=== PATIENT | female | born 1945 | race Caucasian/White ===

== ENCOUNTER 2016-07-06 10:42 | Emergency (ER) | payer MEDICARE ==
[~2016-07-06] VITALS: Ht 167.6 cm; Wt 61.2 kg
[~2016-07-06 10:42] MED LIST: BONI150T PO; ESTR0.5T9 PO; HYDR-3133 PO; MONT10TA2 PO; PRIL40CA PO; SIMV20 PO; [UNRECOGNIZED DRUG - CODE] PO
[2016-07-06 10:46] VITALS: BP 143/102; PULSE 121; RESP 22; TEMP 98.5; O2SAT 97
[2016-07-06] MEDS ORDERED: methylPREDNISolone SOD SUCC 125 MG/2 ML VIAL IVP ONE (11:00)
[2016-07-06] MEDS ORDERED: SODIUM CHLORIDE 0.9% FLUSH 5 ML FLUSH IVF PRN (11:00)
[2016-07-06] MEDS: RESP: ALBUTEROL 2.5 MG/IPRATROPIUM 0.5 MG NEB (SCH) INH (11:09)
--- NOTE | 2016-07-06 11:14 | RADHPO ---
EXAM DATE/TIME: 07/06/2016 11:08 [facility] COMPARISON: No previous studies available for comparison. INDICATIONS : Shortness of breath and coughing for 3 days. MEDICAL HISTORY : None. SURGICAL HISTORY : None. ENCOUNTER: Initial ACUITY: 3 days PAIN SCORE: 0/10 LOCATION: Bilateral chest FINDINGS: A single view of the chest demonstrates the lungs to be symmetrically aerated without evidence of mas s, infiltrate or effusion. The cardiomediastinal contours are unremarkable. Osseous structures are intact. CONCLUSION: No acute disease. Gabriel Aldana MD on July 06, 2016 at 11:12 Board Certified Radiologist. This report was verified electronically.
[2016-07-06] MEDS ORDERED: SODIUM CHLOR 0.9% 1000 ML INJ 1,000 ML IV ONE (11:15)
--- NOTE | 2016-07-06 11:19 | PD ---
HPI . Cough and shortness of breath Chief Complaint: Respiratory Symptoms Time Seen by Provider: 10:55 Travel History International Travel<30 days: Yes Contact w/Intl Traveler<30days: Yes Name of Country Traveled to: [employer] [place] Traveled to known affect area: Yes History of Present Illness HPI Patient presents with a cough and shortness of breath 6 days. She has subjective fevers and chills at the onset of the illness but those have abated. However, the cough and shortness of breath is worsening. She has been seen for this illness and was prescribed a Z-Dillon. She has had day 4 Z-Dillon. Despite this, her symptoms are worsening rather than improving. She now has purulent sputum. PFSH Past Medical History Arthritis: Yes (OSTEOPOROSIS) High Cholesterol: Yes Coronary Artery Disease: Yes (STRESS TEST IN 2008 AND 2009) GERD: Yes ?: Not Menopausal: Yes Past Surgical History Other Surgery: Yes (BREAST BIOPSY) Social History Alcohol Use: Yes (patient) Tobacco Use: No Substance Use: No Allergies-Medications (Allergen,Severity, Reaction): Coded Allergies: Dilaudid (Verified Allergy, Severe, ITCHING, 07/06/16) Iodinated Contrast Media (Verified Allergy, Severe, HIVES, 07/06/16) Keflex (Verified Allergy, Severe, HIVES, 07/06/16) Levaquin (Verified Allergy, Severe, HIVES, 07/06/16) Morphine (Verified Allergy, Severe, HIVES, 07/06/16) Penicillin (Verified Allergy, Severe, HIVES, 07/06/16) Percocet (Verified Allergy, Severe, HIVES, 07/06/16) Uncoded Allergies: XODOL (Allergy, Severe, HIVES, 07/23/11) Reported Meds & Prescriptions Reported Meds & Active Scripts Active Reported Prilosec (Omeprazole) 40 Mg Cap 40 Mg PO DAILY Naprelan (Naproxen Sodium) 750 Mg Tab 750 Mg PO DAILY Hydroxyzine Hcl (Hydroxyzine HCl) 25 Mg Tab 25 Mg PO TIDPRN Singulair (Montelukast Sodium) 10 Mg Tab 10 Mg PO DAILYPRN Estrace (Estradiol) 0.5 Mg Tab 0 PO BID UNKNOWN DOSE Zocor (Simvastatin) 20 Mg Tab 20 Mg PO DAILY Boniva (Ibandronate Sodium) 150 Mg Tab 150 Mg PO MONTHLY Review of Systems Except as stated in HPI: all other systems reviewed are Neg General / Constitutional: Positive: Fever, Chills Cardiovascular: Positive: Chest Pain or Discomfort (she states that her chest is now sore from coughing.) Respiratory: Positive: Cough, Shortness of Breath Physical Exam Narrative GENERAL: The patient appears short of breath. SKIN: Warm and dry. HEAD: Atraumatic. Normocephalic. EYES: Pupils equal and round. ENT: No nasal bleeding or discharge. Mucous membranes pink and moist. NECK: Trachea midline. Neck is supple. CARDIOVASCULAR: Sinus tachycardia. Heart sounds normal. RESPIRATORY: No accessory muscle use. Lungs sound clear. However, the patient is tachypneic at 22. Saturations on room air are 97%. GASTROINTESTINAL: Abdomen soft, non-tender, nondistended. MUSCULOSKELETAL: No obvious deformities. No edema. NEUROLOGICAL: Awake and alert. No obvious cranial nerve deficits. Motor grossly within normal limits. Normal speech. PSYCHIATRIC: Appropriate mood and affect; insight and judgment normal. Data Data Last Documented VS Vital Signs Date Time Temp Pulse Resp B/P Pulse Ox O2 Delivery O2 Flow Rate FiO2 07/06/16 12:17 98.4 123 20 120/63 97 Orders Complete Blood Count With Diff (07/06/16 11:00) Basic Metabolic Panel (Bmp) (07/06/16 11:00) B-Type Natriuretic Peptide (07/06/16 11:00) D-Dimer (07/06/16 11:00) Ckmb (Isoenzyme) Profile (07/06/16 11:00) Troponin I (07/06/16 11:00) Iv Access Insert/Monitor (07/06/16 11:00) Electrocardiogram (07/06/16 11:00) Ecg Monitoring (07/06/16 11:00) Oximetry (07/06/16 11:00) Oxygen Administration (07/06/16 11:00) Chest, Single Ap (07/06/16 11:00) Sodium Chloride 0.9% Flush (Ns Flush) (07/06/16 11:00) Methylprednisolone So Succ Inj (Solumedr (07/06/16 11:00) Albuterol-Ipratropium Neb (Duoneb Neb) (07/06/16 11:00) Sodium Chlor 0.9% 1000 Ml Inj (Ns 1000 M (07/06/16 11:15) Ct Pulmonary Angiogram (07/06/16 12:22) Methylprednisolone So Succ Inj (Solumedr (07/06/16 13:30) Diphenhydramine Inj (Benadryl Inj) (07/06/16 13:30) Iohexol 350 Inj (Omnipaque 350 Inj) (07/06/16 14:05) Labs Laboratory Tests Test 07/06/16 11:27 White Blood Count 10.5 TH/MM3 Red Blood Count 4.92 MIL/MM3 Hemoglobin 14.6 GM/DL Hematocrit 44.4 % Mean Corpuscular Volume 90.3 FL Mean Corpuscular Hemoglobin 29.6 PG Mean Corpuscular Hemoglobin 32.8 % Concent Red Cell Distribution Width 12.9 % Platelet Count 263 TH/MM3 Mean Platelet Volume 8.1 FL Neutrophils (%) (Auto) 76.2 % Lymphocytes (%) (Auto) 12.2 % Monocytes (%) (Auto) 8.8 % Eosinophils (%) (Auto) 2.4 % Basophils (%) (Auto) 0.4 % Neutrophils # (Auto) 8.0 TH/MM3 Lymphocytes # (Auto) 1.3 TH/MM3 Monocytes # (Auto) 0.9 TH/MM3 Eosinophils # (Auto) 0.3 TH/MM3 Basophils # (Auto) 0.0 TH/MM3 CBC Comment DIFF FINAL Differential Comment D-Dimer Quantitative (PE/DVT) 1.55 MG/L FEU Sodium Level 142 MEQ/L Potassium Level 3.7 MEQ/L Chloride Level 104 MEQ/L Carbon Dioxide Level 28.1 MEQ/L Anion Gap 10 MEQ/L Blood Urea Nitrogen 19 MG/DL Creatinine 0.92 MG/DL Estimat Glomerular Filtration 60 ML/MIN Rate Random Glucose 80 MG/DL Calcium Level 9.8 MG/DL Total Creatine Kinase 37 U/L Troponin I LESS THAN 0.02 NG/ML B-Type Natriuretic Peptide 7 PG/ML MDM Medical Decision Making Medical Screen Exam Complete: Yes Emergency Medical Condition: Yes Interpretation(s) EKG shows a sinus rhythm. Her current rate is 98. No acute ischemic change. Differential Diagnosis Differential diagnosis of dyspnea includes but is not limited to congestive heart failure, pneumonia, wheezing, pneumothorax, pulmonary embolism Narrative Course Patient presents with a one-week history cough and shortness of breath. She is tachycardic and tachypneic. Lungs sound clear. CBC & BMP Diagram 07/06/16 11:27 Cardiac enzymes are negative. BNP is 7. D-dimer is 1.55. Last Impressions CT Angiography 07/06/16 1222 Signed Impressions: Service Date/Time: Wednesday, July 06, 2016 13:50 - CONCLUSION: Mild left basilar airspace disease No evidence of pulmonary embolism. Jass Riley MD Chest X-Ray 07/06/16 1100 Signed Impressions: Service Date/Time: Wednesday, July 06, 2016 11:08 - CONCLUSION: No acute disease. Gabriel Aldana MD Disposition as discussed with the patient and her . She much prefers treatment at home. She has been instructed to complete her Zithromax. She reports drug allergies to Keflex, Levaquin and penicillin. I will add doxycycline. She is to follow-up with her primary care provider next week. Diagnosis Primary Impression: Pneumonia Qualified Code: J18.1 - Pneumonia of left lower lobe due to infectious organism Patient Instructions: Bacterial Pneumonia (ED), General Instructions Scripts Hydrocodone-Chlorpheniramine 12 HR Liq (Tussionex Pennkinetic Ext 12 HR Liq)10- 8 Mg/5 Ml Susp5 Ml PO Q12H PRN (cough) #60 ML Ref 0 Prov:Rhonda Bosch MD 07/06/16 Guaifenesin ER 12 HR 1,200 Mg Taber1,200 Mg PO BID #30 TAB Ref 0 Prov:Rhonda Bosch MD 07/06/16 Prednisone 20 Mg Tab60 Mg PO DIRECTED #5 TAB Ref 0 40 MG twice a day x 3 days, then 20 MG daily x 3 days, then 10 MG daily x 3 days Prov:Rhonda oBsch MD 07/06/16 Doxycycline Hyclate 100 Mg Agb455 Mg PO BID #20 CAP Ref 0 Prov:Rhonda Bosch MD 07/06/16 Disposition: 01 DISCHARGE HOME Condition: Stable Rhonda Bosch MD Jul 06, 2016 11:19
[2016-07-06 11:34] LABS: BASOPHIL % 0.4 % (0.0-2.0); EOSINOPHIL # 0.3 TH/MM3 (0-0.4); EOSINOPHIL % 2.4 % (0.0-4.0); HEMATOCRIT 44.4 % (35.0-46.0); HEMO FLAGS DIFF FINAL; LYMPH % 12.2 % (9.0-44.0); LYMPHOCYTE # 1.3 TH/MM3 (1.0-4.8); MEAN CELL VOLUME 90.3 FL (80.0-100.0); MEAN CORPUSCULAR HEMOGLOBIN 29.6 PG (27.0-34.0); MEAN CORPUSCULAR HGB CONC 32.8 % (32.0-36.0); MONO % 8.8 % (0.0-8.0); NEUT % 76.2 % (16.0-70.0); PLATELET COUNT 263 TH/MM3 (150-450); RED BLOOD COUNT 4.92 MIL/MM3 (4.00-5.30); RED CELL DISTRIBUTION WIDTH 12.9 % (11.6-17.2); WHITE BLOOD COUNT 10.5 TH/MM3 (4.0-11.0)
[2016-07-06 11:44] LABS: CHLORIDE 104 MEQ/L (98-107); POTASSIUM 3.7 MEQ/L (3.5-5.1); SODIUM (NA) 142 MEQ/L (136-145)
[2016-07-06 11:47] LABS: ANION GAP 10 MEQ/L (5-15); BICARBONATE 28.1 MEQ/L (21.0-32.0); BLOOD UREA NITROGEN 19 MG/DL (7-18)
[2016-07-06 11:51] LABS: GLOMERULAR FILTRATION RATE 60 ML/MIN (>89)
[2016-07-06 11:52] VITALS: O2SAT 98
[2016-07-06 11:55] LABS: CREATINE KINASE 37 U/L (26-192)
[2016-07-06 12:17] VITALS: BP 120/63; PULSE 123; RESP 20; TEMP 98.4; O2SAT 97
[2016-07-06] MEDS ORDERED: diphenhydrAMINE HCL 50 MG/ML VIAL IV PUSH ONE (13:30)
[2016-07-06] MEDS ORDERED: methylPREDNISolone SOD SUCC 125 MG/2 ML VIAL IV PUSH ONE (13:30)
[2016-07-06] MEDS ORDERED: IOHEXOL 350 MG/ML 10 ML VIAL (for RAD DIAG) IV ONE (14:05)
--- NOTE | 2016-07-06 14:11 | RADHPO ---
EXAM DATE/TIME: 07/06/2016 13:50 [facility] COMPARISON: No previous studies available for comparison. INDICATIONS : Cough and short of breath. Evaluate for pulmonary embolism. IV CONTRAST: 65 cc Omnipaque 350 (iohexol) IV RADIATION DOSE: 7.38 CTDIvol (mGy) MEDICAL HISTORY : Hypercholesterolemia. Gastroesophageal reflux disease. SURGICAL HISTORY : Orthopedic surgery. ENCOUNTER: Initial ACUITY: 4 - 6 days PAIN SCALE: 0/10 LOCATION: chest TECHNIQUE: Volumetric scanning of the chest was performed using a pulmonary embolism protocol MIP images were re constructed. Using automated exposure control and adjustment of the mA and/or kV according to patien t size, radiation dose was kept as low as reasonably achievable to obtain optimal diagnostic quality images. FINDINGS: PULMONARY ARTERIES: No filling defects are seen in the pulmonary arteries through the segmental level. LUNGS: Mild airspace disease is seen posteriorly in the left lower lobe. There is no consolidation or pneumo thorax . No concerning pulmonary nodule is visualized. PLEURAE: There is no pleural thickening or pleural effusion. MEDIASTINUM: There is good visualization of the great vessels of the middle mediastinum. No evidence of mediastin al or hilar adenopathy/mass. MUSCULOSKELETAL: Within normal limits for patient age. MISCELLANEOUS: The visualized upper abdominal organs demonstrate no acute abnormality. CONCLUSION: Mild left basilar airspace disease No evidence of pulmonary embolism. Jass Riley MD on July 06, 2016 at 14:07 Board Certified Radiologist. This report was verified electronically.
[2016-07-06] MEDS ORDERED: PRED20 PO (14:45)
[2016-07-06] MEDS ORDERED: DOXY100C PO (14:45)
[2016-07-06] MEDS ORDERED: GUAI10TA PO (14:46)
[2016-07-06] MEDS ORDERED: TUSSSUS2 PO (14:46)
[2016-07-06 15:05] VITALS: BP 109/62; PULSE 109; RESP 18; O2SAT 95
--- NOTE | 2016-07-07 18:52 | EKG ---
Date Performed: 07/06/2016 Time Performed: 11:12:40 PTAGE: 70 years EKG: Sinus rhythm Normal ECG PREVIOUS TRACING : 07/23/2011 20.31 DOCTOR: David Sands Interpretating Date/Time 07/07/2016 18:45:43
== END 2016-07-06 15:13 | disposition home or self-care (01) ==
LOC: PHED 10:42
DX: J18.1 Lobar pneumonia, unspecified organism (principal); E78.00 Pure hypercholesterolemia, unspecified; M81.0 Age-related osteoporosis without current pathological fracture; R00.0 Tachycardia, unspecified
CPT/HCPCS: 71010; 71275; 80048; 82550; 83880; 84484; 85025; 85379; 93005; 94640; 94664; 96361; 96374; 96375; 99285; J1200; J2930; J7030; Q9967

== ENCOUNTER 2016-07-12 11:34 | Emergency (ER) | payer MEDICARE ==
[~2016-07-12] VITALS: Ht 167.6 cm; Wt 61.5 kg
[~2016-07-12 11:34] MED LIST changes: +DOXY100C PO; +GUAI10TA PO; +PRED20 PO; +TUSSSUS2 PO
[2016-07-12 11:42] VITALS: BP 152/83; PULSE 77; RESP 20; TEMP 98.4; O2SAT 98
[2016-07-12 13:41] VITALS: BP 136/70; PULSE 66; RESP 18; RESP 20; O2SAT 98; O2SAT 99
[2016-07-12] MEDS ORDERED: RESP: LIDOCAINE HCL 4% PF 5 ML NEB NEB ONE (13:45)
[2016-07-12] MEDS ORDERED: RESP: ALBUTEROL 2.5 MG/IPRATROPIUM 0.5 MG NEB (SCH) INH ONE (13:45)
[2016-07-12] MEDS ORDERED: SODIUM CHLORIDE 0.9% FLUSH 5 ML FLUSH IVF PRN (13:45)
[2016-07-12] MEDS ORDERED: MONT10TA2 PO (13:47)
[2016-07-12] MEDS ORDERED: BONI150T PO (13:47)
[2016-07-12] MEDS ORDERED: ESTR42.5V VAGINAL (13:47)
[2016-07-12] MEDS ORDERED: [UNRECOGNIZED DRUG - CODE] PO (13:47)
[2016-07-12] MEDS ORDERED: PANT40TA3 PO (13:47)
[2016-07-12] MEDS ORDERED: ROSU40 PO (13:47)
[2016-07-12] MEDS ORDERED: ZANTTAB PO (13:47)
[2016-07-12] MEDS ORDERED: HYDR-3133 PO (13:47)
[2016-07-12] MEDS ORDERED: OXYB5TAB PO (13:47)
--- NOTE | 2016-07-12 13:49 | PD ---
HPI Chief Complaint: Respiratory Symptoms Time Seen by Provider: 13:29 Travel History International Travel<30 days: No Contact w/Intl Traveler<30days: No Traveled to known affect area: No History of Present Illness HPI The patient is a 70-year-old female who presents to the emergency department for continuing cough and anterior pleuritic chest pain. The patient states she was seen in the emergency department on July 06 for similar symptoms , had a chest x-ray performed and a CT pulmonary angiogram performed which revealed possible lower lobe pneumonia. The patient was discharged home on steroids and antibiotics, however, is continuing to have symptoms. The patient states the cough is dry and mostly nonproductive. She also complains of burning anterior chest pain that is worse with coughing and alleviated at rest. The patient denies any fever, chills, or sweats. However, she does complain of generalized weakness. The patient's symptoms are moderate, there are no current alleviating or exacerbating factors. The patient does not have a local primary physician, she states in [place] April through August. PFSH Past Medical History Arthritis: Yes (OSTEOPOROSIS) High Cholesterol: Yes Coronary Artery Disease: Yes (STRESS TEST IN 2008 AND 2009) Diminished Hearing: No GERD: Yes Tetanus Vaccination: > 5 Years Influenza Vaccination: No Menopausal: Yes Past Surgical History Other Surgery: Yes (BREAST BIOPSY) Social History Alcohol Use: Yes (OCCASIONALLY) Tobacco Use: No Substance Use: No Allergies-Medications (Allergen,Severity, Reaction): Coded Allergies: Dilaudid (Verified Allergy, Severe, ITCHING, 07/12/16) Iodinated Contrast Media (Verified Allergy, Severe, PT DENIES ALLERGY, ) Keflex (Verified Allergy, Severe, HIVES, 07/12/16) Levaquin (Verified Allergy, Severe, HIVES, 07/12/16) Morphine (Verified Allergy, Severe, HIVES, 07/12/16) Penicillin (Verified Allergy, Severe, HIVES, 07/12/16) Percocet (Verified Allergy, Severe, HIVES, 07/12/16) Uncoded Allergies: XODOL (Allergy, Severe, HIVES, 07/23/11) Reported Meds & Prescriptions Reported Meds & Active Scripts Active Tussionex Pennkinetic Ext 12 HR Liq (Hydrocodone-Chlorpheniramine 12 HR Liq) 10- 8 Mg/5 Ml Susp 5 Ml PO Q12H PRN Guaifenesin ER 12 HR (Guaifenesin) 1,200 Mg Derik 1,200 Mg PO BID Prednisone 20 Mg Tab 60 Mg PO DIRECTED 40 MG twice a day x 3 days, then 20 MG daily x 3 days, then 10 MG daily x 3 days Doxycycline Hyclate 100 Mg Cap 100 Mg PO BID Reported Boniva (Ibandronate Sodium) 150 Mg Tab 150 Mg PO Q28D Naprelan (Naproxen Sodium) 750 Mg Tab 750 Mg PO DAILY Hydroxyzine HCl 25 Mg Tab 25 Mg PO BID Singulair (Montelukast Sodium) 10 Mg Tab 10 Mg PO HS Zantac 150 Maximum Strength (Ranitidine HCl) 150 Mg Tab 150 Mg PO BID Pantoprazole (Pantoprazole Sodium) 40 Mg Tab 40 Mg PO BID Oxybutynin ER 24 HR (Oxybutynin Chloride) 5 Mg Tab 5 Mg PO DAILY Crestor (Rosuvastatin Calcium) 40 Mg Tab 40 Mg PO DAILY Estrace Vaginal (Estradiol) 0.01% Cream 1 Appl VAGINAL HS Review of Systems Except as stated in HPI: all other systems reviewed are Neg General / Constitutional: No: Fever Cardiovascular: Positive: Chest Pain or Discomfort (anterior pleuritic chest pain), No: Diaphoresis Respiratory: Positive: Cough, Pleuritic Pain, No: Shortness of Breath Gastrointestinal: No: Nausea, Vomiting Musculoskeletal: No: Weakness Neurologic: No: Dizziness Physical Exam Narrative GENERAL: Awake, alert, pleasant 70 year-old female who appears her stated age and is in no acute respiratory distress. SKIN: Warm and dry. HEAD: Atraumatic. Normocephalic. EYES: No injection or drainage. ENT: No nasal bleeding or discharge. Mucous membranes pink and moist. NECK: Trachea midline. No JVD. CARDIOVASCULAR: Regular rate and rhythm. No murmur appreciated. RESPIRATORY: No accessory muscle use. Few scattered rhonchi. GASTROINTESTINAL: Abdomen soft, non-tender, nondistended. No rebound tenderness. MUSCULOSKELETAL: No obvious deformities. No clubbing. No cyanosis. No edema. NEUROLOGICAL: Awake and alert. No obvious cranial nerve deficits. Motor grossly within normal limits. Normal speech. PSYCHIATRIC: Appropriate mood and affect; insight and judgment normal. Data Data Last Documented VS Vital Signs Date Time Temp Pulse Resp B/P Pulse Ox O2 Delivery O2 Flow Rate FiO2 07/12/16 13:41 18 98 Room Air 07/12/16 13:41 66 136/70 07/12/16 11:42 98.4 Orders Complete Blood Count With Diff (07/12/16 13:38) Comprehensive Metabolic Panel (07/12/16 13:38) B-Type Natriuretic Peptide (07/12/16 13:38) Magnesium (Mg) (07/12/16 13:38) Ckmb (Isoenzyme) Profile (07/12/16 13:38) Troponin I (07/12/16 13:38) Iv Access Insert/Monitor (07/12/16 13:38) Electrocardiogram (07/12/16 13:38) Ecg Monitoring (07/12/16 13:38) Oximetry (07/12/16 13:38) Oxygen Administration (07/12/16 13:38) Chest, Single Ap (07/12/16 13:38) Sodium Chloride 0.9% Flush (Ns Flush) (07/12/16 13:45) Albuterol-Ipratropium Neb (Duoneb Neb) (07/12/16 13:45) Lidocaine Pf 4% Neb (Lidocaine Pf 4% Neb (07/12/16 13:45) Labs Laboratory Tests Test 07/12/16 13:50 White Blood Count 10.7 TH/MM3 Red Blood Count 4.84 MIL/MM3 Hemoglobin 14.2 GM/DL Hematocrit 43.6 % Mean Corpuscular Volume 90.0 FL Mean Corpuscular Hemoglobin 29.3 PG Mean Corpuscular Hemoglobin 32.6 % Concent Red Cell Distribution Width 12.9 % Platelet Count 295 TH/MM3 Mean Platelet Volume 8.1 FL Neutrophils (%) (Auto) 66.2 % Lymphocytes (%) (Auto) 21.3 % Monocytes (%) (Auto) 9.3 % Eosinophils (%) (Auto) 2.1 % Basophils (%) (Auto) 1.1 % Neutrophils # (Auto) 7.1 TH/MM3 Lymphocytes # (Auto) 2.3 TH/MM3 Monocytes # (Auto) 1.0 TH/MM3 Eosinophils # (Auto) 0.2 TH/MM3 Basophils # (Auto) 0.1 TH/MM3 CBC Comment AUTO DIFF Differential Total Cells 100 Counted Neutrophils % (Manual) 64 % Lymphocytes % 22 % Monocytes % 10 % Neutrophils # (Manual) 7.3 TH/MM3 Metamyelocytes 2 % Myelocytes 2 % Differential Comment FINAL DIFF MANUAL Platelet Estimate NORMAL Platelet Morphology Comment NORMAL Ovalocytes 1+ Sodium Level 143 MEQ/L Potassium Level 3.5 MEQ/L Chloride Level 105 MEQ/L Carbon Dioxide Level 29.0 MEQ/L Anion Gap 9 MEQ/L Blood Urea Nitrogen 23 MG/DL Creatinine 0.84 MG/DL Estimat Glomerular Filtration 67 ML/MIN Rate Random Glucose 89 MG/DL Calcium Level 9.0 MG/DL Magnesium Level 2.0 MG/DL Total Bilirubin 0.7 MG/DL Aspartate Amino Transf 11 U/L (AST/SGOT) Alanine Aminotransferase 21 U/L (ALT/SGPT) Alkaline Phosphatase 59 U/L Total Creatine Kinase 21 U/L Troponin I LESS THAN 0.02 NG/ML B-Type Natriuretic Peptide 27 PG/ML Total Protein 7.1 GM/DL Albumin 3.7 GM/DL [facility] Medical Decision Making Medical Screen Exam Complete: Yes Emergency Medical Condition: Yes Medical Record Reviewed: Yes Interpretation(s) EKG reveals normal sinus rhythm with a rate of 66. Nonspecific ST changes. Q wave noted in lead 3. Laboratory Tests Test 07/12/16 13:50 White Blood Count 10.7 TH/MM3 Red Blood Count 4.84 MIL/MM3 Hemoglobin 14.2 GM/DL Hematocrit 43.6 % Mean Corpuscular Volume 90.0 FL Mean Corpuscular Hemoglobin 29.3 PG Mean Corpuscular Hemoglobin 32.6 % Concent Red Cell Distribution Width 12.9 % Platelet Count 295 TH/MM3 Mean Platelet Volume 8.1 FL Neutrophils (%) (Auto) 66.2 % Lymphocytes (%) (Auto) 21.3 % Monocytes (%) (Auto) 9.3 % Eosinophils (%) (Auto) 2.1 % Basophils (%) (Auto) 1.1 % Neutrophils # (Auto) 7.1 TH/MM3 Lymphocytes # (Auto) 2.3 TH/MM3 Monocytes # (Auto) 1.0 TH/MM3 Eosinophils # (Auto) 0.2 TH/MM3 Basophils # (Auto) 0.1 TH/MM3 CBC Comment AUTO DIFF Differential Total Cells 100 Counted Neutrophils % (Manual) 64 % Lymphocytes % 22 % Monocytes % 10 % Neutrophils # (Manual) 7.3 TH/MM3 Metamyelocytes 2 % Myelocytes 2 % Differential Comment FINAL DIFF MANUAL Platelet Estimate NORMAL Platelet Morphology Comment NORMAL Ovalocytes 1+ Sodium Level 143 MEQ/L Potassium Level 3.5 MEQ/L Chloride Level 105 MEQ/L Carbon Dioxide Level 29.0 MEQ/L Anion Gap 9 MEQ/L Blood Urea Nitrogen 23 MG/DL Creatinine 0.84 MG/DL Estimat Glomerular Filtration 67 ML/MIN Rate Random Glucose 89 MG/DL Calcium Level 9.0 MG/DL Magnesium Level 2.0 MG/DL Total Bilirubin 0.7 MG/DL Aspartate Amino Transf 11 U/L (AST/SGOT) Alanine Aminotransferase 21 U/L (ALT/SGPT) Alkaline Phosphatase 59 U/L Total Creatine Kinase 21 U/L Troponin I LESS THAN 0.02 NG/ML B-Type Natriuretic Peptide 27 PG/ML Total Protein 7.1 GM/DL Albumin 3.7 GM/DL Chest x-ray reveals no acute disease Differential Diagnosis Differential diagnosis includes bronchitis, reactive airway disease, pneumonia, pleural effusion, acute coronary syndrome, pulmonary embolus. Narrative Course IV was established, labs are drawn and sent, and the patient was placed on cardiac telemetry monitoring and continuous pulse oximetry monitoring. EKG was ordered and interpreted. Repeat chest x-ray was performed. I reviewed the patient's EMR from July 06, she had a CT pulmonary angiogram which revealed possible basilar airspace disease, but was negative for PE. Chest x-ray was negative. Patient most likely has bronchitis with continuing congestion, I had a discussion with the patient regarding the cough, the cough may last 6-8 weeks. The patient was administered DuoNeb 1 with respiratory lidocaine for symptomatic relief. Laboratory evaluation is unremarkable. Troponin and BNP are normal. The patient be discharged home with prescription for albuterol nebulizer machine and albuterol nebulizers. She is advised to continue current medications as previously directed and follow-up with a primary physician. Diagnosis Primary Impression: Bronchitis Additional Impression: Cough Patient Instructions: General Instructions Additional Instructions: Medications as directed. Nebulizers every 4 hours while awake. Follow-up with a primary physician. Please provide the patient a copy of her chest x-ray results and lab results at discharge. Med/Other Pt SpecificInfo: Prescription(s) given Scripts Nebulizer 1 Mis Mis #1 EA NEB DIRECTED Ref 0 Prov:Koby Slade MD 07/12/16 Albuterol Neb 2.5 Mg/3 Ml Neb2.5 Mg NEB Q4HR NEB PRN (SHORTNESS OF BREATH) #60 NEBULE Ref 0 Prov:Koby Slade MD 07/12/16 Disposition: 01 DISCHARGE HOME Condition: Stable Koby Slade MD Jul 12, 2016 13:49
[2016-07-12 14:04] LABS: AUTOMATED NEUTROPHIL # 7.1 TH/MM3 (1.8-7.7); BASOPHIL # 0.1 TH/MM3 (0-0.2); BASOPHIL % 1.1 % (0.0-2.0); EOSINOPHIL # 0.2 TH/MM3 (0-0.4); EOSINOPHIL % 2.1 % (0.0-4.0); HEMATOCRIT 43.6 % (35.0-46.0); LYMPH % 21.3 % (9.0-44.0); LYMPHOCYTE # 2.3 TH/MM3 (1.0-4.8); MEAN CORPUSCULAR HEMOGLOBIN 29.3 PG (27.0-34.0); MEAN CORPUSCULAR HGB CONC 32.6 % (32.0-36.0); MONO % 9.3 % (0.0-8.0); NEUT % 66.2 % (16.0-70.0); PLATELET COUNT 295 TH/MM3 (150-450); RED BLOOD COUNT 4.84 MIL/MM3 (4.00-5.30); RED CELL DISTRIBUTION WIDTH 12.9 % (11.6-17.2); WHITE BLOOD COUNT 10.7 TH/MM3 (4.0-11.0)
--- NOTE | 2016-07-12 14:09 | RADHPO ---
EXAM DATE/TIME: 07/12/2016 13:46 [facility] COMPARISON: CHEST SINGLE AP, July 06, 2016, 11:08. INDICATIONS : Short of breath MEDICAL HISTORY : None. SURGICAL HISTORY : None. ENCOUNTER: Initial ACUITY: 1 week PAIN SCORE: 6/10 LOCATION: Bilateral chest FINDINGS: A single view of the chest demonstrates the lungs to be symmetrically aerated without evidence of mas s, infiltrate or effusion. The cardiomediastinal contours are unremarkable. There is old healed righ t rib fractures and anterior cervical fusion plate present. The patient is status post vertebroplasty at the upper lumbar spine. CONCLUSION: No acute disease. Karsten Ma MD on July 12, 2016 at 14:05 Board Certified Radiologist. This report was verified electronically.
[2016-07-12 14:13] LABS: CHLORIDE 105 MEQ/L (98-107); POTASSIUM 3.5 MEQ/L (3.5-5.1); SODIUM (NA) 143 MEQ/L (136-145)
[2016-07-12 14:14] LABS: HEMO FLAGS AUTO DIFF
[2016-07-12 14:16] LABS: ANION GAP 9 MEQ/L (5-15)
[2016-07-12 14:17] LABS: BLOOD UREA NITROGEN 23 MG/DL (7-18)
[2016-07-12 14:19] LABS: ALT (GPT) 21 U/L (10-53)
[2016-07-12 14:20] LABS: AST (GOT) 11 U/L (15-37); GLOMERULAR FILTRATION RATE 67 ML/MIN (>89)
[2016-07-12 14:21] LABS: TOTAL BILIRUBIN ADULT 0.7 MG/DL (0.2-1.0)
[2016-07-12 14:22] LABS: ALKALINE PHOSPHATASE 59 U/L (45-117)
[2016-07-12 14:31] LABS: CREATINE KINASE 21 U/L (26-192)
[2016-07-12 14:35] LABS: METAMYELOCYTES 2 % (0-1); MYELOCYTES 2 % (0-0); NEUTROPHIL # MANUAL DIFF 7.3 TH/MM3 (1.8-7.7); OVALOCYTES 1+ (NORMAL); PLATELET ESTIMATE SMEAR NORMAL (NORMAL); PLATELET MORPHOLOGY NORMAL (NORMAL); POLYS (SEG NEUTROPHILS) 64 % (16-70); SCAN/DIFF FINAL DIFF MANUAL; WBC DIFF SAMPLE 100
[2016-07-12] MEDS ORDERED: NEBULIZER1 MI1 NEB (14:52)
[2016-07-12] MEDS ORDERED: ALBU0.08 NEB (14:52)
[2016-07-12 16:15] VITALS: BP 128/64
--- NOTE | 2016-07-13 15:04 | EKG ---
Date Performed: 07/12/2016 Time Performed: 13:47:24 PTAGE: 70 years EKG: Sinus rhythm Lateral ST-T changes are nonspecific Borderline ECG PREVIOUS TRACING : 07/06/2016 11.12 Compared to prior tracing no significant change DOCTOR: Cory Beth Interpretating Date/Time 07/13/2016 15:01:49
== END 2016-07-12 16:30 | disposition home or self-care (01) ==
LOC: PHED 11:34
DX: J40 Bronchitis, not specified as acute or chronic (principal); E78.00 Pure hypercholesterolemia, unspecified; M81.0 Age-related osteoporosis without current pathological fracture; R06.02 Shortness of breath
CPT/HCPCS: 71010; 80053; 82550; 83735; 83880; 84484; 85007; 85027; 93005; 94664

== ENCOUNTER 2017-08-14 05:03 | Emergency (ER) | payer MEDICARE ==
[~2017-08-14] VITALS: Ht 167.6 cm; Wt 64.0 kg
[~2017-08-14 05:03] MED LIST changes: +ALBU0.08 NEB; -ESTR0.5T9 PO; +ESTR42.5V VAGINAL; +NEBULIZER1 MI1 NEB; +OXYB5TAB PO; +PANT40TA3 PO; -PRIL40CA PO; +ROSU40 PO; -SIMV20 PO; +ZANTTAB PO; +[UNRECOGNIZED DRUG - CODE] PO; -[UNRECOGNIZED DRUG - CODE] PO
[2017-08-14 05:04] VITALS: BP 203/89; PULSE 61; RESP 18; TEMP 97.9; O2SAT 96
[2017-08-14] MEDS ORDERED: FIBE625T10 PO (05:29)
[2017-08-14 05:36] VITALS: BP 164/82; PULSE 59; RESP 16; O2SAT 98
[2017-08-14] MEDS ORDERED: PRED20 PO (06:10)
--- NOTE | 2017-08-14 06:11 | PD ---
HPI Chief Complaint: Cold / Flu Symptoms Time Seen by Provider: 06:04 Travel History International Travel<30 days: No Contact w/Intl Traveler<30days: No Traveled to known affect area: No History of Present Illness HPI The patient is a 71-year-old female that complains of a sore throat, 8/10 and dull pain when she swallows and talks. The patient denies any fever. She has a slight nonproductive cough. She denies any nausea, vomiting or diarrhea. She denies any dysuria, frequency or urgency. PFSH Past Medical History Arthritis: Yes (OSTEOPOROSIS) High Cholesterol: Yes Coronary Artery Disease: Yes (STRESS TEST IN 2008 AND 2009) Diminished Hearing: No GERD: Yes Musculoskeletal: Yes (chronic neck and back pain) Tetanus Vaccination: Unknown Influenza Vaccination: No ?: Not Menopausal: Yes Past Surgical History Other Surgery: Yes (BREAST BIOPSY) Social History Alcohol Use: Yes (OCCASIONALLY) Tobacco Use: No Substance Use: No Allergies-Medications (Allergen,Severity, Reaction): Coded Allergies: Iodinated Contrast- Oral and IV Dye (Verified Allergy, Severe, PT DENIES ALLERGY, 08/14/17) Sulfa (Sulfonamide Antibiotics) (Verified Allergy, Severe, 08/14/17) acetaminophen (Verified Allergy, Severe, HIVES, 08/14/17) cephalexin (Verified Allergy, Severe, HIVES, 08/14/17) hydromorphone (Verified Allergy, Severe, ITCHING, 08/14/17) levofloxacin (Verified Allergy, Severe, HIVES, 08/14/17) morphine (Verified Allergy, Severe, HIVES, 08/14/17) oxycodone (Verified Allergy, Severe, HIVES, 08/14/17) penicillin G (Verified Allergy, Severe, HIVES, 08/14/17) Uncoded Allergies: XODOL (Allergy, Severe, HIVES, 07/23/11) Reported Meds & Prescriptions Reported Meds & Active Scripts Active Reported Fiber (Calcium Polycarbophil) 625 Mg Tab 625 Mg PO DAILY PRN Naprelan (Naproxen Sodium) 750 Mg Tab 750 Mg PO DAILY Hydroxyzine HCl 25 Mg Tab 25 Mg PO BID Singulair (Montelukast Sodium) 10 Mg Tab 10 Mg PO HS Zantac 150 Maximum Strength (Ranitidine HCl) 150 Mg Tab 150 Mg PO BID Pantoprazole (Pantoprazole Sodium) 40 Mg Tab 40 Mg PO BID Oxybutynin ER 24 HR (Oxybutynin Chloride) 5 Mg Tab 5 Mg PO DAILY Crestor (Rosuvastatin Calcium) 40 Mg Tab 40 Mg PO DAILY Estrace Vaginal (Estradiol) 0.01% Cream 1 Appl VAGINAL HS Review of Systems Except as stated in HPI: all other systems reviewed are Neg Physical Exam Narrative GENERAL: The patient is alert, oriented 3 in slight apparent distress with her sore throat. Her vital signs show initial blood pressure 203/99 but repeat is 164/82. The rest of the vital signs are normal. SKIN: Focused skin assessment warm/dry. No skin rash is seen. HEAD: Atraumatic. Normocephalic. EYES: Pupils equal and round. No scleral icterus. No injection or drainage. ENT: No nasal bleeding or discharge. Mucous membranes pink and moist. NECK: Trachea midline. No JVD. No lymphadenopathy is present. CARDIOVASCULAR: Regular rate and rhythm. No murmur appreciated. RESPIRATORY: No accessory muscle use. Clear to auscultation. Breath sounds equal bilaterally. GASTROINTESTINAL: Abdomen soft, non-tender, nondistended. Hepatic and splenic margins not palpable. MUSCULOSKELETAL: No obvious deformities. No clubbing. No cyanosis. No edema. NEUROLOGICAL: Awake and alert. No obvious cranial nerve deficits. Motor grossly within normal limits. Normal speech. PSYCHIATRIC: Appropriate mood and affect; insight and judgment normal. ENT: The tympanic membranes are clear and the throat shows no erythema, exudate nor abscess. Data Data Last Documented VS Vital Signs Date Time Temp Pulse Resp B/P (MAP) Pulse Ox O2 Delivery O2 Flow Rate FiO2 08/14/17 05:36 59 16 164/82 (109) 98 Room Air 08/14/17 05:04 97.9 Orders Orders Group A Rapid Strep Screen (08/14/17 05:44) Influenzae A/B Antigen (08/14/17 05:44) Strep Culture (Group A) (08/14/17 05:45) MDM Medical Decision Making Medical Screen Exam Complete: Yes Emergency Medical Condition: Yes Medical Record Reviewed: Yes Interpretation(s) The influenza A/B antigen is negative for flu a and flu B antigen. The strep screen is negative for group A strep antigen. Differential Diagnosis Flu syndrome, nonspecific viral syndrome, viral pharyngitis, strep pharyngitis Narrative Course The patient has a viral syndrome with viral pharyngitis. Plan: The patient be given prednisone 20 mg twice daily for 5 days. Diagnosis Primary Impression: Viral pharyngitis Additional Impression: Viral URI Additional Instructions: The prednisone is 1 tablet twice daily for 5 days. This usually helps calm down the throat and reduces the pain. Warm salt water gargles are useful with 1 teaspoon of salt to a large glass of water. Follow-up with your primary care physician when you get back to [place]. Med/Other Pt SpecificInfo: Prescription(s) given Scripts Prednisone (Prednisone) 20 Mg Tab 20 MG PO BID for 5 Days, #10 TAB 0 Refills Prov: Dutch Kyle MD 08/14/17 Disposition: 01 DISCHARGE HOME Condition: Stable uDtch Kyle MD Aug 14, 2017 06:11
[2017-08-14] MEDS ORDERED: predniSONE 20 MG TAB PO ONE (06:15)
[2017-08-14 06:25] VITALS: BP 175/86
== END 2017-08-14 06:27 | disposition home or self-care (01) ==
LOC: PHED 05:03
DX: J06.9 Acute upper respiratory infection, unspecified (principal); M81.0 Age-related osteoporosis without current pathological fracture; E78.00 Pure hypercholesterolemia, unspecified; I25.10 Atherosclerotic heart disease of native coronary artery without angina pectoris; K21.9 Gastro-esophageal reflux disease without esophagitis; Z79.899 Other long term (current) drug therapy; Z88.2 Allergy status to sulfonamides; Z88.6 Allergy status to analgesic agent; Z88.5 Allergy status to narcotic agent
CPT/HCPCS: 87081; 87804; 87880; 99283; J7512